=== PATIENT | female | born 1975 | race Caucasian/White ===

== ENCOUNTER 2022-09-19 05:33 | Observation (INO) ==
--- NOTE | 2022-08-31 11:14 | PAT Medication Instructions ---
Medication Instructions Date of Service August 31, 2022 Home Medications Medication Instructions Recorded cyclobenzaprine 10 mg tablet 10 mg PO TID PRN muscle spasm #15 07/09/22 tabs duloxetine 60 mg capsule,delayed release 60 mg PO QAM cetirizine 10 mg tablet (Zyrtec) 10 mg PO DAILY PRN Allergy Symptoms naltrexone 50 mg tablet 50 mg PO HS ibuprofen 600 mg tablet 600 mg PO Q8H PRN Pain cyclobenzaprine 10 mg tablet 10 mg PO TID PRN muscle spasm polyethylene glycol 3350 17 gram/dose oral powder (Miralax) 17 g PO DAILY PRN Constipation ASK your surgeon for instructions ibuprofen 600 mg tablet 600 mg PO Q8H PRN Pain DO NOT take the morning of surgery cetirizine 10 mg tablet (Zyrtec) 10 mg PO DAILY PRN Allergy Symptoms cyclobenzaprine 10 mg tablet 10 mg PO TID PRN muscle spasm polyethylene glycol 3350 17 gram/dose oral powder (Miralax) 17 g PO DAILY PRN Constipation Take morning of surgery With a small sip of water, OTHERWISE NOTHING TO EAT OR DRINK AFTER MIDNIGHT: duloxetine 60 mg capsule,delayed release 60 mg PO QAM Take evening before surgery cetirizine 10 mg tablet (Zyrtec) 10 mg PO DAILY PRN Allergy Symptoms (if needed) naltrexone 50 mg tablet 50 mg PO HS cyclobenzaprine 10 mg tablet 10 mg PO TID PRN muscle spasm (if needed) polyethylene glycol 3350 17 gram/dose oral powder (Miralax) 17 g PO DAILY PRN Constipation (if needed) Other Notes If you have any questions please call us at [phone] or [phone] or [phone] or [phone]
--- NOTE | 2022-09-05 11:26 | Anesthesiology Consultation ---
Date of Service September 05, 2022 Assessment & Plan (1) Encounter for pre-operative examination: Chart Review Chart Review: Acceptable Risk for Surgery and Patient NOT seen in Pre Admission Testing -Scop patch ordered for DOS due to PONV Per PAT appt on 09/05/22, patient denies any recent travel or large group activities. Pt is vaccinated for Covid. Will leave to surgeon's discretion if preop Covid testing needed. Educated on importance of using Covid precautions one week prior to surgery Teaching & Discussion Pre-Anesthesia Teaching/Discussion Notes: Instructed NPO after midnight before surgery,except medications with 15 cc of water. Medication instructions provided according to the PAT guidelines. History Surgery Operation Date: 09/19/22 07:15 Proposed Procedures p C5-C6 AND C6-C7 Cervical Disc Arthroplasty Versus - Juan Jimenez MD s C5-C7 Cervical Fusion - Juan Jimenez MD Height/Weight Height: 5 ft 1 in Weight: 83.4 kg Allergies Allergy/AdvReac Type Severity Reaction Status Date / Time codeine Allergy Mild Nausea Verified 08/30/22 11:16 Medications Home Medications Medication Instructions Recorded Confirmed Last Taken duloxetine 60 mg capsule,delayed 60 mg PO QAM 09/01/19 08/30/22 12/15/19 09:00 release cetirizine 10 mg tablet (Zyrtec) 10 mg PO DAILY PRN Allergy Symptoms 12/09/19 08/30/22 12/15/19 0900 naltrexone 50 mg tablet 50 mg PO HS 06/10/21 08/30/22 Unknown ibuprofen 600 mg tablet 600 mg PO Q8H PRN Pain 06/20/22 08/30/22 Unknown cyclobenzaprine 10 mg tablet 10 mg PO TID PRN muscle spasm #15 07/09/22 08/30/22 Unknown tabs polyethylene glycol 3350 17 17 g PO DAILY PRN Constipation 08/30/22 08/30/22 Unknown gram/dose oral powder (Miralax) Past Medical History Medical History Anxiety Constipation "ongoing"-has miralax prn Degenerative disc disease Depression Family history of anesthesia complication maternal grandfather-" coming out of anesthesia, couldn't get his blood pressure to come up; we never looked into it any further" History of COVID-19 05/2020, drive thru test, not hosp; loss taste, mild fever, fatigue>resolved. History of gastric ulcer No recent issues Migraine hx Myofascial pain Nausea and vomiting after administration of anesthetic agent Exercise / Class Metabolic Activity II 4-5 Yardwork/Stairs/Walk up hill (one flight of stairs - no chest pain or SOB) Past Family History Family History Grandfather (Maternal) Family history of reaction to anesthesia 1998--at age 66 on operating table during prostate sx, HR/BP dropped--all patient knows Mother Family history of reaction to anesthesia nausea Family hx colonic polyps Grandmother (Paternal) Family history of diabetes mellitus Grandmother (Maternal) Family history of diabetes mellitus Past Surgical History Surgical History History of dilatation and curettage History of esophagogastroduodenoscopy (EGD) History of hysterectomy History of tonsillectomy and adenoidectomy History of tooth extraction History of wisdom tooth extraction Hx of colonoscopy Status post LASIK surgery of both eyes Past Anesthesia History No Hx of Anesthesia Complications (with exception to PONV) and No Family Hx of Anesthesia Complications (with exception to grandfather - during surgery- issues with blood pressure (severe hypotension post op- could not correct)- no other FH of anesthesia issues/pt has not personal issues with anesthesia besides PONV) History of PONV History of PONV (significant ) and Hx of Motion Sickness Social History Smoking Status: Never smoker Do You Dip or Chew Tobacco: No Hx Alcohol Use: Yes Alcohol type: beer and wine alcohol intake frequency: a few times a month Hx Substance Use: No substance use type: former substance user and marijuana Review of Systems Occ reflux - relieved with OTC meds Occ snoring - no hx of sleep study Patient denies chest pain, shortness of breath, dyspnea on exertion, cough, wheezing, palpitations. No hx of seizures, stroke, [place]. No hx of blood clots or blood transfusions Physical Exam Vital Signs VITALS BP 141/96 P 96 TEMP 98.6 SP02 97% RESP 16 Constitutional no acute distress ENMT Mouth: no TMJ clicking Thyromental Distance: > or= 3.5 Finger Breadths (3.5) Mallampati Class: III Missing molars Neck + limited neck extension (mild) Respiratory normal respiratory effort; no respiratory distress Auscultation: lungs clear to auscultation bilaterally; no wheezes Cardiovascular Rate/Rhythm: regular rate and regular rhythm Heart Sounds: no murmur Vessels: no carotid bruit Musculoskeletal Spine: no pain with cervical ROM Extremities: extremities normal to inspection Psychiatric Orientation: alert Lab Results Anesthesia Preop Results Results Anesthesia Widget: WBC 5.92 K/ul (4.8-10.8) 08/16/22 Hgb 14.8 g/dl (12.0-16.0) 08/16/22 Hct 42.6 % (37.0-47.0) 08/16/22 Plt 278 K/uL (130-400) 08/16/22 Na 138 mmol/L (136-145) 08/16/22 K 4.5 mmol/L (3.5-5.1) 08/16/22 Cl 104 mmol/L (98-107) 08/16/22 CO2 31 mmol/L (21-32) 08/16/22 BUN 16 mg/dl (6-23) 08/16/22 Creat 0.90 mg/dl (0.6-1.2) 08/16/22 Glucose Level 94 mg/dl (70-99(Fasting)) 08/16/22 PT 10.0 Seconds (9.0-12.0) 08/16/22 PTT 29.4 Seconds (21.0-31.0) 08/16/22 INR 0.9 (0.9-1.1) 08/16/22 Blood Type A Positive 08/16/22 Antibody Screen NEGATIVE 08/16/22 Testing Electrocardiogram Date: 08/16/22 Findings: + NSR @ (78bpm ) Normal EKG per cardio COVID-19 Risk Screen Screening Information COVID-19 Screen Date: 09/05/22 Exposure 21 Days Family/Household +COVID Last 21 Days: No Exposure 10 Days Any COVID Exposure Last 10 Days: No Symptoms Last 10 Days Experienced COVID Sx Last 10 Days: No + COVID 0-90 Days COVID + in Last 0-90 Days: No Risk Plan COVID Risk Plan: No Risk Identified Patient Education COVID Preop Screening Education Complete: Yes
[2022-09-19] MEDS ORDERED: ceFAZolin 2000MG 2,000 MG/15 ML SYR IV SCH (06:00)
[2022-09-19] MEDS ORDERED: LR 15ML/HR IV SCH (06:00)
[2022-09-19] MEDS ORDERED: LR 60ML/HR IV SCH (06:00)
[2022-09-19] MEDS ORDERED: fentaNYL citrate PF 100 MCG/2 ML VIAL ONE ×2 (06:53→08:37)
[2022-09-19] MEDS ORDERED: MIDAZOLAM HCL 1 MG/ML 2ML VIAL ONE (06:53)
[2022-09-19] MEDS ORDERED: PROPOFOL IV EMULSION 10 MG/ML 20 ML VIAL IV ONE (06:57)
[2022-09-19] MEDS ORDERED: ROCURONIUM BROMIDE 10 MG/ML 5 ML VIAL IV ONE ×3 (06:57→10:43)
[2022-09-19] MEDS ORDERED: LIDOCAINE 2% MPF LOCAL 5 ML VIAL INFIL ONE (06:58)
[2022-09-19] MEDS ORDERED: ONDANSETRON INJ 2 MG/ML 2 ML VIAL ONE (06:59)
[2022-09-19] MEDS ORDERED: DEXAMETHASONE SOD INJ 4 MG/ML VIAL ONE (06:59)
--- NOTE | 2022-09-19 07:08 | History & Physical Report ---
Date of Service September 19, 2022 Assessment & Plan (1) Cervical radiculopathy: (2) Cervical stenosis of spinal canal: (3) Herniation of cervical intervertebral disc with radiculopathy: Plan Plan: Today I spent minimum 45 minutes talking to the patient and her we reviewed not only the CT scan but also the prior cervical radiographs, and also the MRI in great detail. Using a model went on to explain to them the findings on the studies in house related to her symptoms noting that she has radiculopathy in the left arm in a C7 pattern which I think is coming from C6-7, but also has significant central stenosis at C5-6 which may also be playing a role in some of her symptomatology. At this time I recommended operative intervention for both levels due to the findings as the central narrowing at C5- 6 was worse than that at the C6-7 level. I then went into a lengthy discussion of the surgical options which included anterior approach, and either decompression and arthrodesis or artificial disc replacement. The nuances of the different procedures including the decompression aspect, the overall alignment of the cervical spine including the fact that there is some limited motion present at both these levels but whether significant improvement could be obtained is not known until after the surgery and in follow-up. I related that there is always a chance that with the artificial disc replacement or revision may need to be performed or arthrodesis if there is any alignment issues. Otherwise the benefits of motion sparing devices versus fusion were discussed in detail. This also included general description and discussion of the routine risks associated with this type procedure and/or any differences between artificial disc replacement versus fusion. At this time expressed interest in moving ahead with the stated procedure that is attempt to try to place the artificial disc but if necessary fusion can be performed, then follow-up 2 weeks afterwards. History of Present Illness Chief Complaint: . Primary Care Provider: Rohith Adam 47-year-old female who developed increasing neck and left arm symptoms which developed on the weekend of 3 and half weeks ago. She feels she slept potentially in an odd position and woke up with severe pain in the base of the cervical spine radiating to the left shoulder and then down the left arm diffusely and to the hand more so in the central 3 digits. 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 She did do taper dose steroid and has been taking ibuprofen [id number] and also Flexeril for spasms which has improved to a limited degree. She has undergone prior epidural injection this past December and also cervical spine in the past with limited improvement. Also prior EMG from over 2 years ago revealing some evidence of carpal and/or cubital tunnel syndrome. Exam reveals patient to have appropriate cervical range of motion, symptoms are increased with extension and also left Spurling's maneuver with left arm symptoms and neck pain. Deep tendon full reflexes were 2/4 and symmetric for biceps triceps and brachial radialis. Right arm weakness was intact on the right, but the left revealed appropriate strength for shoulder abduction and elbow flexion but left elbow extension was weaker in a 4 out of 5 range, slightly weaker with left wrist extension compared to the right, finger abduct ion was relatively symmetric. She had negative Tinel's at wrist and elbow, positive Phalen's on the left. 2 views of the cervical spine were taken today, these are flexion-extension views, and they reveal the C5-6 and C6-7 levels to have slight loss of lordosis, some limited motion on flexion-extension, no subluxation noted at the remaining levels with appropriate motion.This was also reviewed in combination with prior radiographs from July 12, 2022, AP and lateral views which reveal normal alignment on the AP view and a lateral there is relative straightening of the cervical spine. Review of MRI images of the cervical spine from [facility] on July 18, 2022, this is my separate interpretation, reveals the patient to have a somewhat narrowed canal, there are very slight central disc protrusions at C3-4 and C4-5, but at C5-6 there appears to be a worsening of the disc protrusion extending centrally with some moderate left foraminal narrowing, and the central left disc protrusion causing left foraminal narrowing at C6-7 which are newer findings when compared to previous MRI from September 25, 2021 which was also reviewed. Impression: Combination of chronic cervical axial and upper extremity symptoms combined with flareup 3-1/2 weeks ago and left arm triceps weakness and wrist extension weakness, new findings noted on MRI from 2 weeks ago at C5-6 and C6-7. Plan: Today I spent minimum 45 minutes talking to the patient and her we reviewed not only the CT scan but also the prior cervical radiographs, and also the MRI in great detail. Using a model went on to explain to them the findings on the studies in house related to her symptoms noting that she has radiculopathy in the left arm in a C7 pattern which I think is coming from C6-7, but also has significant central stenosis at C5-6 which may also be playing a role in some of her symptomatology. At this time I recommended operative intervention for both levels due to the findings as the central narrowing at C5- 6 was worse than that at the C6-7 level. I then went into a lengthy discussion of the surgical options which included anterior approach, and either decompression and arthrodesis or artificial disc replacement. The nuances of the different procedures including the decompression aspect, the overall alignment of the cervical spine including the fact that there is some limited motion present at both these levels but whether significant improvement could be obtained is not known until after the surgery and in follow-up. I related that there is always a chance that with the artificial disc replacement or revision may need to be performed or arthrodesis if there is any alignment issues. Otherwise the benefits of motion sparing devices versus fusion were discussed in detail. This also included general description and discussion of the routine risks associated with this type procedure and/or any differences between artificial disc replacement versus fusion. At this time expressed interest in moving ahead with the stated procedure that is attempt to try to place the artificial disc but if necessary fusion can be performed, then follow-up 2 weeks afterwards. Allergies Allergy/AdvReac Type Severity Reaction Status Date / Time codeine Allergy Mild Nausea Verified 09/19/22 05:55 Home Medications Medication Instructions Recorded Confirmed Type duloxetine 60 mg capsule,delayed 60 mg PO QPM 09/01/19 09/19/22 History release cetirizine 10 mg tablet (Zyrtec) 10 mg PO DAILY PRN Allergy Symptoms 12/09/19 09/19/22 History naltrexone 50 mg tablet 50 mg PO HS 06/10/21 09/19/22 History ibuprofen 600 mg tablet 600 mg PO Q8H PRN Pain 06/20/22 09/19/22 History cyclobenzaprine 10 mg tablet 10 mg PO TID PRN muscle spasm #15 07/09/22 09/19/22 Rx tabs polyethylene glycol 3350 17 17 g PO DAILY PRN Constipation 02/22/23 03/14/23 History gram/dose oral powder (Miralax) Past Med/Surg History Medical History Anxiety Constipation "ongoing"-has miralax prn Degenerative disc disease Depression Family history of anesthesia complication maternal grandfather-" coming out of anesthesia, couldn't get his blood pressure to come up; we never looked into it any further" History of COVID-19 05/2020, drive thru test, not hosp; loss taste, mild fever, fatigue>resolved. History of gastric ulcer No recent issues Migraine hx Myofascial pain Nausea and vomiting after administration of anesthetic agent Surgical History History of dilatation and curettage History of esophagogastroduodenoscopy (EGD) History of hysterectomy History of tonsillectomy and adenoidectomy History of tooth extraction History of wisdom tooth extraction Hx of colonoscopy Status post LASIK surgery of both eyes Family History Grandfather (Maternal) Family history of reaction to anesthesia 1998--at age 66 on operating table during prostate sx, HR/BP dropped--all patient knows Mother Family history of reaction to anesthesia nausea Family hx colonic polyps Grandmother (Paternal) Family history of diabetes mellitus Grandmother (Maternal) Family history of diabetes mellitus Social History Smoking Status: Never smoker Second Hand Exposure: No; Do You Dip or Chew Tobacco: No; Tobacco Cessation Education Requested by Patient: No Hx Alcohol Use: Yes Alcohol type: beer and wine Hx Substance Use: No Preferred Language: Guyanese Communication Ability: Effective Ux Interaction Designer Required: No Beliefs That Will Affect Care: None Current Living Situation: Spouse and Family Current Living Situation Comment: Lives with , son and daughter Other Information That Helps Us Care for You: No Feels Safe at Home: Yes Safety Concerns: Feels Safe At This Time Assistive Devices: Glasses Assistive Devices Comment: glasses prn Review of Systems All systems reviewed & are unremarkable except as noted in HPI & below. Physical Exam . Results & Data Results & Data Laboratory Results . Diagnostic Findings . PG Care Time/CCT Total # of Minutes Spent Total Time Spent with Patient: Total time spent is greater than 50% in coordination of care (as documented) at patient's floor/unit and/or counseling patient: Coding Level of Care Code None Diagnoses Cervical radiculopathy M54.12 Cervical stenosis of spinal canal M48.02 Herniation of cervical intervertebral disc with radiculopathy M50.10
[2022-09-19] MEDS ORDERED: DexMEDEtomidine HCL IV 100 MCG/ML VIAL IV ONE (07:17)
[2022-09-19] MEDS ORDERED: GELATIN SPONGE SZ 100 ONE (07:19)
[2022-09-19] MEDS ORDERED: THROMBIN 5000 UNITS KIT ONE (07:19)
[2022-09-19] MEDS ORDERED: VANCOMYCIN HCL 1000MG/20ML VIAL ONE (07:19)
[2022-09-19] MEDS ORDERED: SUGAMMADEX SODIUM 200 MG/2 ML VIAL IV ONE (07:21)
[2022-09-19] MEDS ORDERED: HYDROmorphone INJ 2 MG/ML SYR/VIAL IV PRN (08:22)
[2022-09-19] MEDS ORDERED: ePHEDrine sulfate 50 MG/ML AMP IV PRN (08:22)
[2022-09-19] MEDS ORDERED: ATROPINE SULFATE 0.1 MG/ML 10ML SYR IV PRN (08:22)
[2022-09-19] MEDS ORDERED: PROMETHAZINE HCL 12.5 MG in SODIUM CHLORIDE 0.9% 50 ML IV PRN ×2 (08:22→14:27)
[2022-09-19] MEDS ORDERED: ONDANSETRON INJ 2 MG/ML 2 ML VIAL IV PRN ×2 (08:22→14:27)
[2022-09-19] MEDS ORDERED: SODIUM CHLORIDE 0.9% 50 ML BAG ONE (12:54)
[2022-09-19] MEDS ORDERED: PROMETHAZINE HCL INJ 25 MG/ML 1 ML VIAL ONE (12:54)
[2022-09-19] MEDS: fentaNYL citrate PF 100 MCG/2 ML VIAL IV PRN ×4 (13:08→13:45)
--- NOTE | 2022-09-19 13:41 | Post Operative Brief Note ---
PG Immediate Post Op with CF Date of Surgery September 19, 2022 Pre & Post Diagnosis Operation Date: 09/19/22 07:15 Pre-Op Diagnosis: Cervical radiculopathy, cervical stenosis of spinal canal, herniation of cervical intervertebral disc with radiculopathy Post-Op Diagnosis: Cervical radiculopathy, cervical stenosis of spinal canal, herniation of cervical intervertebral disc with radiculopathy I identified the patient and participated in the time-out.: Yes Procedure Operation Date: 09/19/22 07:15 Actual Procedures p C5-C6 and C6-C7 Cervical Disc Arthroplasty(Not Applicable) - Juan Jimenez MD Surgeon Juan Jimenez MD Combine Operator brain joseph Estimated Blood Loss 50 Findings Consistent with Post-Op Diagnosis Specimens Specimen Description: None per surgeon Drains Hernandez Catheter (400ml urine output; removed) Disposition Accompanied Patient To Recovery: No Disposition: Recovery Room Overlapping Procedure I was present for: the critical portions of procedure.
--- NOTE | 2022-09-19 14:22 | Anesthesiology Progress Note ---
Date of Service September 19, 2022 Anesthesia Post Procedure Vital Signs Vital Signs: Temp Pulse Pulse Resp BP BP Pulse Ox 09/19/22 14:10 36.3 C L 82 14 141/89 H 100 09/19/22 14:00 83 15 141/82 H 98 09/19/22 13:50 86 16 135/87 98 09/19/22 13:40 80 19 136/83 98 09/19/22 13:30 79 14 124/83 96 09/19/22 13:20 79 15 131/86 95 09/19/22 13:10 79 15 129/85 94 09/19/22 13:00 75 16 131/97 94 09/19/22 12:50 74 18 131/88 97 09/19/22 12:40 76 20 130/90 97 09/19/22 12:34 36.3 C L 84 16 132/80 96 09/19/22 06:09 36.9 C 92 H 18 175/112 H 167/115 H 96 O2 Del Method O2 Flow Rate 09/19/22 14:10 Room Air 09/19/22 14:00 Room Air 09/19/22 13:50 Room Air 09/19/22 13:40 Room Air 09/19/22 13:30 Room Air 09/19/22 13:20 Room Air 09/19/22 13:10 Room Air 09/19/22 13:00 Room Air 09/19/22 12:50 Room Air 09/19/22 12:40 Oxymask 3 09/19/22 12:34 Oxymask 6 09/19/22 06:09 Room Air Pain Intensity Left Neck: Pain Intensity: 4 Transfer of Care Handoff Completed per policy Notes Mental Status: alert / awake / arousable and participated in evaluation Patient Amnestic to Procedure: Yes Nausea / Vomiting: adequately controlled Pain: adequately controlled Airway Patency, RR, SpO2: stable & adequate BP & HR: stable & adequate Hydration State: stable & adequate Anesthetic Complications: no major complications apparent
[2022-09-19] MEDS ORDERED: ACETAMINOPHEN 500 MG TAB PO PRN (14:27)
[2022-09-19] MEDS ORDERED: METOCLOPRAMIDE HCL INJ 5 MG/ML 2 ML VIAL IV PRN (14:27)
[2022-09-19] MEDS ORDERED: NALOXONE HCL 0.4 MG/1 ML VIAL/CARP IV PRN (14:27)
[2022-09-19] MEDS ORDERED: FAMOTIDINE 20 MG TAB PO PRN (14:27)
[2022-09-19] MEDS ORDERED: DO NOT ADMINISTER FLU VACCINE PRN (14:27)
[2022-09-19] MEDS ORDERED: DO NOT ADMINISTER PNEUMOCOCCAL VACCINE PRN (14:27)
[2022-09-19] MEDS ORDERED: MAGNESIUM HYDROXIDE SUSP 30 ML UDC PO PRN (14:27)
[2022-09-19] MEDS ORDERED: bisacodyL 10 MG SUPP PR PRN (14:27)
[2022-09-19] MEDS ORDERED: ACETAMINOPHEN 1,000 MG/100 ML VIAL IV PRN (14:27)
[2022-09-19] MEDS ORDERED: ONDANSETRON 4 MG OD TAB PO PRN (14:27)
[2022-09-19] MEDS ORDERED: ALUMINUM/MAGNESIUM SUSP 30 ML UDC PO PRN (14:27)
[2022-09-19] MEDS ORDERED: RACEPINEPHRINE 2.25% NEBU SOLN 0.5 ML VIAL INH PRN (14:27)
--- NOTE | 2022-09-19 14:30 | Fluoroscopy Report ---
FL cervical 2-3V CLINICAL HISTORY: ACDF C5-7 TECHNIQUE: 7 views were obtained with the C-arm in the OR with the above procedure. Total fluoroscopy time was 2 minutes 35 seconds. Comparison: None available at the time of this dictation. FINDINGS/IMPRESSION: Intraoperative images were obtained of ACDF Please correlate with intraoperative fluoroscopy and operative report. ACT 112: Negative or not required by law. Electronically signed by: Mario Rhodes M.D. 09/19/2022 2:29 PM
[2022-09-19] MEDS: HYDROCODONE/ACETAMOPHEN 5/325MG TAB PO PRN ×3 (15:07→23:37)
[2022-09-19] MEDS ORDERED: DOCUSATE SODIUM/SENNA 50/8.6MG TAB PO SCH (21:00)
[2022-09-20] MEDS: HYDROCODONE/ACETAMOPHEN 5/325MG TAB PO PRN ×2 (04:03→09:09)
--- NOTE | 2022-09-20 09:01 | Orthopedic Progress Note ---
Date of Service September 20, 2022 Subjective Patient doing well, has some neck pain but arm symptoms resolved. Incision site is unremarkable, motor intact. Discussed with patient postoperative care, she will follow-up in 2 to 3 weeks. Review of Systems All systems reviewed & are unremarkable except as noted in HPI & below. Physical Exam . Results & Data Results & Data Laboratory Results . Diagnostic Findings . PG Care Time/CCT Total # of Minutes Spent Total Time Spent with Patient: Total time spent is greater than 50% in coordination of care (as documented) at patient's floor/unit and/or counseling patient: Coding Level of Care Code 65821 Post Operative Follow-Up Diagnoses
--- NOTE | 2022-09-20 09:04 | Discharge Summary ---
Date of Service September 20, 2022 Admission HPI (Per Admitting) 47-year-old female who developed increasing neck and left arm symptoms which developed on the weekend of 3 and half weeks ago. She feels she slept potentially in an odd position and woke up with severe pain in the base of the cervical spine radiating to the left shoulder and then down the left arm diffusely and to the hand more so in the central 3 digits. 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 She did do taper dose steroid and has been taking ibuprofen [id number] and also Flexeril for spasms which has improved to a limited degree. She has undergone prior epidural injection this past December and also cervical spine in the past with limited improvement. Also prior EMG from over 2 years ago revealing some evidence of carpal and/or cubital tunnel syndrome. Exam reveals patient to have appropriate cervical range of motion, symptoms are increased with extension and also left Spurling's maneuver with left arm symptoms and neck pain. Deep tendon full reflexes were 2/4 and symmetric for biceps triceps and brachial radialis. Right arm weakness was intact on the right, but the left revealed appropriate strength for shoulder abduction and elbow flexion but left elbow extension was weaker in a 4 out of 5 range, slightly weaker with left wrist extension compared to the right, finger abduction was relatively symmetric. She had negative Tinel's at wrist and elbow, positive Phalen's on the left. 2 views of the cervical spine were taken today, these are flexion-extension views, and they reveal the C5-6 and C6-7 levels to have slight loss of lordosis, some limited motion on flexion-extension, no subluxation noted at the remaining levels with appropriate motion.This was also reviewed in combination with prior radiographs from July 12, 2022, AP and lateral views which reveal normal alignment on the AP view and a lateral there is relative straightening of the cervical spine. Review of MRI images of the cervical spine from [facility] on July 18, 2022, this is my separate interpretation, reveals the patient to have a somewhat narrowed canal, there are very slight central disc protrusions at C3-4 and C4-5, but at C5-6 there appears to be a worsening of the disc protrusion extending centrally with some moderate left foraminal narrowing, and the central left disc protrusion causing left foraminal narrowing at C6-7 which are newer findings when compared to previous MRI from September 25, 2021 which was also reviewed. Impression: Combination of chronic cervical axial and upper extremity symptoms combined with flareup 3-1/2 weeks ago and left arm triceps weakness and wrist extension weakness, new findings noted on MRI from 2 weeks ago at C5-6 and C6-7. Plan: Today I spent minimum 45 minutes talking to the patient and her we reviewed not only the CT scan but also the prior cervical radiographs, and also the MRI in great detail. Using a model went on to explain to them the findings on the studies in house related to her symptoms noting that she has radiculopathy in the left arm in a C7 pattern which I think is coming from C6-7, but also has significant central stenosis at C5-6 which may also be playing a role in some of her symptomatology. At this time I recommended operative intervention for both levels due to the findings as the central narrowing at C5- 6 was worse than that at the C6-7 level. I then went into a lengthy discussion of the surgical options which included anterior approach, and either decompression and arthrodesis or artificial disc replacement. The nuances of the different procedures including the decompression aspect, the overall alignment of the cervical spine including the fact that there is some limited motion present at both these levels but whether significant improvement could be obtained is not known until after the surgery and in follow-up. I related that there is always a chance that with the artificial disc replacement or revision may need to be performed or arthrodesis if there is any alignment issues. Otherwise the benefits of motion sparing devices versus fusion were discussed in detail. This also included general description and discussion of the routine risks associated with this type procedure and/or any differences between artificial disc replacement versus fusion. At this time expressed interest in moving ahead with the stated procedure that is attempt to try to place the artificial disc but if necessary fusion can be performed, then follow-up 2 weeks afterwards. Admission Exam (Per Admitting) . Principal Diagnosis Same as "Discharge Diagnosis" noted below under Discharge Instructions. Discharge Exam . Discharge Data Procedures Performed Operation Date: 09/19/22 07:15 Actual Procedures p C5-C6 and C6-C7 Cervical Disc Arthroplasty(Not Applicable) - Juan Jimenez MD Ordered Studies 09/19/22 07:15 FL cervical 2-3V Routine PG Care Time/CCT Total # of Minutes Spent Total Time Spent with Patient: Total time spent is greater than 50% in coordination of care (as documented) at patient's floor/unit and/or counseling patient: Discharge Plan Discharge Items Patient Disposition: Home - Self-Care Reason For Visit: Cervical Stenosis Spinal Canal, Radiculopathy, Discharge Diagnosis: cervical radiculopathy Condition on Discharge: Good Activity: Resume your previous activity Bathing: May shower/bathe in 3 days Non-emergency contact: Primary Care Provider and Surgeon Call non-emergency contact if: your symptoms worsen, your pain is worsening, your temperature is above 101.5 and your wound has increased redness Follow-up/Referrals: Juan Jimenez MD [Surgeon] - Rohith Adam D.O. [Primary Care Provider] - Diet: Regular Addtl Attending Provider Instructions: Maintain dressing for 2 days, may shower at 3 days, no contact sports for 6 weeks. Follow-up in 2 to 3 weeks. Pending Studies at Discharge: No Stand-Alone Forms: My [employer], Smoking Cessation Medications and DC Order Prescriptions: New oxycodone-acetaminophen 5-325 mg tablet 1 tab PO Q6H PRN (Reason: pain) Qty: 14 0RF Continued ibuprofen 600 mg tablet 600 mg PO Q8H PRN (Reason: Pain) naltrexone 50 mg tablet 50 mg PO HS duloxetine 60 mg capsule,delayed release(DR/EC) 60 mg PO QPM cetirizine [Zyrtec] 10 mg Tablet 10 mg PO DAILY PRN (Reason: Allergy Symptoms) polyethylene glycol 3350 [Miralax] 17 gram/dose Powder 17 g PO DAILY PRN (Reason: Constipation) Patient Comments: takes a couple times a week cyclobenzaprine 10 mg tablet 10 mg PO TID PRN (Reason: muscle spasm) Qty: 15 0RF Discharge Orders: Discharge Order (Routine); Ordered 09/20/22 Ordered By: Juan Jimenez Admission Data Admit Date/Time: 09/19/22 13:38 Attending Provider: Juan Jimenez Admit Provider: Juan Jimenez Primary Care Provider: Rohith Adam
--- NOTE | 2022-09-20 14:09 | Operative Report ---
PG Post Operative Report Pre & Post Diagnosis Operation Date: 09/19/22 07:15 Pre-Op Diagnosis: Cervical radiculopathy, cervical stenosis of spinal canal, herniation of cervical intervertebral disc with radiculopathy Post-Op Diagnosis: Cervical radiculopathy, cervical stenosis of spinal canal, herniation of cervical intervertebral disc with radiculopathy I identified the patient and participated in the time-out.: Yes Procedure Operation Date: 09/19/22 07:15 Actual Procedures p C5-C6 and C6-C7 Cervical Disc Arthroplasty(Not Applicable) - Juan Jimenez MD Surgeon Juan Jimenez MD Homicide Detective brain joseph Estimated Blood Loss 50 Findings Consistent with Post-Op Diagnosis Specimens None Complications None Disposition Accompanied Patient To Recovery: No Disposition: Recovery Room Description of Procedure Patient was taken the operating room and after adequate anesthesia was placed supine on the OSI flat top table. This point underwent positioning, followed by reprep of the cervical region and then at this point I brought in fluoroscopy to radha for the approximate location for the incision for the C5-6 and C6-7 levels. Prep and drape was performed, and I made a transverse incision on the left side of the cervical spine in the region as noted. This is carried down along the medial border of the sternocleidomastoid onto the anterior aspect the cervical spine without issue. Once this tissues were mobilized, I then moved ahead with confirming our location fluoroscopically followed by then utilizing the fluoroscope to insert distractor pins that C6 and C7 centrally located. With this not completed the retractors were then placed in the level followed by distractor. Operative microscope was brought in, an incision was made made in the anterior annulus. I remove the disc material using pituitary followed by then curettes removing the additional disc material and cartilage from the endplates. This process continued until the level was well decompressed the all n disc material, at this point I then moved posteriorly using a curette to mobilize the remaining disc annulus and posterior ligament. The levels and decompressed down to the dura and the uncinates on both sides. The centrally located posterior spondylosis was then mobilized using a angled curettes. Upon completion of the decompression, the trials were then inserted for estimation of size. For the C6-7 level a 17 x 19 x 5 mm Mobi-c was selected, this was obtained and tapped into position with excellent position on AP and lateral views. At this point then I removed the distractor pin at C7, bone wax was applied, and then placed this at the C5 level. Once again the retractors were reset, and then operative microscope was brought in with incision in the anterior annulus followed by a thorough discectomy as with the other level. Posterior decompression was performed across the interspace and including reaching inferiorly and superiorly behind the vertebral bodies for manual reduction of some of the posterior ossification. With this completed then small amount of Gelfoam was placed followed by then inserting a trial and then selecting artificial disc at 15 x 17 x 5 mm Mobi-C. Final images were then obtained, the distractor pins were removed with placement of bone wax and those areas of insertion. Final inspection revealed no issues with the equipment in place. There was no bleeding noted on the final inspection, vancomycin powder was placed followed by then closure using 3-0 Vicryl sutures in followed by benzoin and Steri-Strips. Sterile dressing was applied, patient was taken recovery room satisfactory condition. I attest to the content of the Intraoperative Record and any orders documented therein. Any exceptions are noted below.
== END 2022-09-20 13:34 | disposition home or self-care (01) ==
LOC: 3E 05:33 → ASU 05:33